=== PATIENT | male | born 1965 | race Caucasian/White ===

== ENCOUNTER 2023-07-25 12:30 | Emergency (ER) | payer OTHER, MEDICAID ==
[~2023-07-25] VITALS: Ht 170.2 cm; Wt 68.0 kg
[2023-07-25 12:32] VITALS: BP 107/73; PULSE 88; RESP 20; TEMP 98.5; O2SAT 94
[2023-07-25 13:28] LABS: BASOPHILS # (AUTO) 0.1 K/uL (0.00-0.22); BASOPHILS % (AUTO) 0.8 % (0.0-2.0); EOSINOPHILS # (AUTO) 0.2 K/uL (0-0.4); EOSINOPHILS % (AUTO) 1.7 % (0.0-4.0); HEMATOCRIT 42.2 % (36-52); HEMOGLOBIN 14.7 g/dL (12.0-18.0); LYMPHOCYTES # (AUTO) 2.2 K/uL (2.0-11.5); LYMPHOCYTES % (AUTO) 22.8 % (20.5-51.1); MEAN CORPUSCULAR HEMOGLOBIN 32 pg (27-31); MEAN CORPUSCULAR HGB CONC 35 g/dL (33-37); MEAN CORPUSCULAR VOLUME 91.4 fL (80-94); MONOCYTES # (AUTO) 0.9 K/uL (0.8-1.0); MONOCYTES % (AUTO) 9.7 % (1.7-9.3); NEUTROPHILS # (AUTO) 6.4 K/uL (1.8-7.7); PLATELET COUNT (AUTO) 239 K/uL (140-450); RED BLOOD CELL COUNT(AUTO) 4.62 MIL/uL (4.20-6.10); RED CELL DISTRIBUTION WIDTH 12.9 % (11.6-13.7); WHITE BLOOD COUNT (AUTO) 9.8 K/uL (4.8-10.8)
[2023-07-25] MEDS: MORPHINE SULFATE 4 MG/ML SYR IVP ONE (13:34)
[2023-07-25 13:40] LABS: ANION GAP 13.7 (8-16); CALCIUM 9.5 mg/dL (8.5-10.1); CARBON DIOXIDE 26.9 mmol/L (21-32); CREATININE 1.2 mg/dL (0.6-1.3); POTASSIUM 3.6 mmol/L (3.5-5.1)
[2023-07-25 15:35] VITALS: BP 110/78; PULSE 80; RESP 18; O2SAT 95
[2023-07-25] MEDS: oxyCODONE 10 MG TABER PO ONE (15:51)
== END 2023-07-25 16:00 | disposition home or self-care (01) ==
LOC: MED 12:30
DX: S10.93XA Contusion of unspecified part of neck, initial encounter (principal); S20.219A Contusion of unspecified front wall of thorax, initial encounter; Z88.8 Allergy status to other drugs, medicaments and biological substances; W18.30XA Fall on same level, unspecified, initial encounter; Y93.89 Activity, other specified; Y92.89 Other specified places as the place of occurrence of the external cause; Y99.8 Other external cause status
CPT/HCPCS: 36415; 70450; 71275; 72125; 74174; 80048; 85025; 96374; 99285; J2270; Q9967